=== PATIENT | male | born 1955 | race Caucasian/White ===

== ENCOUNTER 2016-10-25 04:11 | Emergency (ER) | payer SELFPAY ==
[~2016-10-25] VITALS: Ht 167.6 cm; Wt 67.2 kg
[2016-10-25 05:47] LABS: CHLORIDE 102 mEq/L (99-109); POTASSIUM 4.1 mEq/L (3.7-5.4); SODIUM 139 mEq/L (136-147)
[2016-10-25 05:49] LABS: GLUCOSE 90 mg/dL (70-99)
[2016-10-25 05:50] LABS: ANION GAP 9 MEQ/L (2-14)
[2016-10-25 05:51] LABS: TOTAL BILIRUBIN 0.8 mg/dL (0.0-1.0)
[2016-10-25 05:52] LABS: SERUM ETHYL ALCOHOL < 10 mg/dL
[2016-10-25 05:53] LABS: ALKALINE PHOSPHATASE 83 IU/L (3-129); GFR ESTIMATE (CALCULATED) > 59 mL/min/
[2016-10-25 05:54] LABS: UREA NITROGEN (BUN) 14 mg/dL (9-23)
[2016-10-25 06:11] LABS: MCH 31.3 PG (29.0-34.0); MCHC 33.7 G/DL (30.0-36.0); MEAN PLAT.VOLUME 11.2 uM^3 (9.0-12.4); PLATELET COUNT 209 K/uL (156-360); RBC DIS.WIDTH-SD 44.6 % (39-53); RED BLOOD COUNT 4.41 M/uL (4.00-5.50); WHITE BLOOD COUNT 14.5 K/uL (4.1-10.2)
[2016-10-25 13:06] VITALS: BP 113/71
== END 2016-10-25 13:08 | disposition home or self-care (01) ==
LOC: EME 04:11
PROVIDERS: Emergency Medicine
DX: F60.2 Antisocial personality disorder (principal); R45.1 Restlessness and agitation; F22 Delusional disorders; Z78.1 Physical restraint status; F17.200 Nicotine dependence, unspecified, uncomplicated
CPT/HCPCS: 80053; 81003; 85027; 90837; 99281; 99283; G0480; J2060